=== PATIENT | male | born 1970 | race Hispanic/Latino ===

== ENCOUNTER 2022-08-01 09:30 | Emergency (ER) | payer SELFPAY ==
--- OUTSIDE RECORDS SUMMARY | 2022-08-01 09:32 | XMS REPORT | Continuity of Care Document ---
:1970 Author Organization [facility] t Address [address] [place] [address] Care Team Providers Name Role Phone PCP, PATIENT DOES NOT HAVE A Primary Care Physician UnavailDEREK Metcalf Attending Clinician Unavailable Derek Bethea DO Attending Clinician Rob LEWIS Attending Clinician Unavailable Rob Khan Attending Clinician ROSA LEMONS Attending Clinician Unavailable ROSA LEMONS Admitting Clinician Unavailable Payers Payer Name Policy Type Policy Number Effective Date Expiration Date S [facility] - [id number] 2018 00:00:00 OUT OF STATE Problems Condition Condition Condition Status Onset Resolution Last Treating Co mments Source Name Details Category Date Date Treatment Clinician Date No known No known Disease Unive rs active active ity of problems problems [facility] Allergies, Adverse Reactions, Alerts Allergy Allergy Status Severity Reaction(s) Onset Inactive Treating Comm ents Source Name Type Date Date Clinician NO KNOWN Drug Active Univers ALLERGIE Class ity of S [facility] Social History Social Habit Start Date Stop Date Quantity Comments Source Exposure to 2022-04-30 2022-05-10 Not sure [facility] SARS-CoV-2 (event) 00:00:00 08:46:00 Medica l Branch Sex Assigned At [birth year] [facility] 00:00:00 00:00:00 Medical Branch Smoking Status Start Date Stop Date Source Unknown if ever smoked [facility] Medical Branch Medications Ordered Filled Start Stop Current Ordering Indication Dosage Frequency Signature Comments Components Source Medication Medication Date Date Medication? Clinician (SIG) Name Name polymyxin B 2021- Yes [id number] 1[drp] Place 1 [facility] sulf-trimet 05-10 [id number] Drop in it y of hoprim 00:00: 04:59 left eye [place] 10,000 00 :00 every 4 Medical unit- 1 (four) Branch mg/mL hours for ophthalmic 5 days. drops ketorolac 2020-0 Yes [id number] 10mg Take 1 Un noel 10 mg 9-30 tablet by ity of tablet 00:00: mouth [place] 00 every 6 Medical (six) Branch hours as needed for Pain (scale 4-6). tamsulosin 2020-0 Yes [id number] .4mg Take 1 U nivers 0.4 mg 24 9-30 capsule by ity of hr capsule 00:00: mouth at Gabe as 00 bedtime. Medical Branch ketorolac 2020-0 Yes [id number] 10mg Take 1 Un noel 10 mg 9-30 tablet by ity of tablet 00:00: mouth [place] 00 every 6 Medical (six) Branch hours as needed for Pain (scale 4-6). tamsulosin 2020-0 Yes [id number] .4mg Take 1 U nivers 0.4 mg 24 9-30 capsule by ity of hr capsule 00:00: mouth at Gabe as 00 bedtime. Medical Branch acetaminoph 2020-0 Yes [id number] 1{tbl} Take 1 Univers en-codeine 2-13 tablet by ity of (TYLENOL-CO 00:00: mouth [place] DEINE #3) 00 every 6 Medical 300-30 mg (six) Branch tablet hours as needed for Pain (scale 4-6). acetaminoph 2020-0 Yes [id number] 1{tbl} Take 1 Univers en-codeine 2-13 tablet by ity of (TYLENOL-CO 00:00: mouth [place] DEINE #3) 00 every 6 Medical 300-30 mg (six) Branch tablet hours as needed for Pain (scale 4-6). Vital Signs Vital Name Observation Time Observation Value Comments Source Systolic blood 2022-05-10 13:46:00 151 mm[Hg] Univer sity of pressure [facility] Diastolic blood 2022-05-10 13:46:00 107 mm[Hg] Unive rsity of pressure [facility] Heart rate 2022-05-10 13:46:00 77 /min Universi ty of [facility] Body temperature 2022-05-10 13:46:00 36.78 Verónica Univ ersity [facility] Respiratory rate 2022-05-10 13:46:00 18 /min Univ ersity of [facility] Body height 2022-05-10 13:46:00 172.7 cm Universi ty of [facility] Body weight 2022-05-10 13:46:00 108.863 kg Universi ty of [facility] BMI 2022-05-10 13:46:00 36.49 kg/m2 Universi ty of [facility] Oxygen saturation in 2022-05-10 13:46:00 97 /min University of Arterial blood by [facility] Pulse oximetry Branch Systolic blood 2022-02-17 01:39:00 154 mm[Hg] Univer sity of [facility] Medical [place] Diastolic blood 2022-02-17 01:39:00 84 mm[Hg] Unive rsity of pressure [facility] Heart rate 2022-02-17 01:39:00 97 /min Universi ty of [facility] Oxygen saturation in 2022-02-17 01:39:00 95 /min University of Arterial blood by [facility] Pulse oximetry Branch Body temperature 2022-02-17 00:58:00 37.28 Verónica [facility] ersity [facility] Respiratory rate 2022-02-17 00:58:00 18 /min Univ ersity [facility] Body height 2022-02-17 00:58:00 172.7 cm Universi ty of [facility] Body weight 2022-02-17 00:58:00 108.863 kg Universi ty [facility] BMI 2022-02-17 00:58:00 36.49 kg/m2 Universi ty [facility] Procedures Procedure Date / Time Performed Performing Clinician [facility] e ASSIGNMENT OF BENEFITS 2022-05-10 15:01:33 Doctor Unassigned, No [facility] CONSENT/REFUSAL FOR 2022-05-10 13:45:55 Doctor Unassigned, No [facility] [place] DIAGNOSIS AND Name Medical Branch TREATMENT NOTICE OF PRIVACY 2022-02-17 00:47:27 Doctor Unassigned, No [facility] [place] PRACTICES Name [facility] Branch CONSENT/REFUSAL FOR 2022-02-17 00:45:34 Doctor Unassigned, No [facility] [place] DIAGNOSIS AND Name Medical Branch TREATMENT Encounters Start End Encounter Admission Attending Care Care Encounter Source Date/Time Date/Time Type Type Clinicians Facility Department ID 2022-05-10 2022-05-10 Emergency X [facility] ERT [id number] Univers 08:47:00 10:06:00 DEREK itshawn of [facility] 2022-05-10 2022-05-10 Emergency Singer [facility] [id number] Univers 08:47:00 10:06:00 Derek CALLAHAN [id number] i ty of [place] [id number] [facility] [id number] [place] [address] Branch 2022-02-16 2022-02-16 Emergency X Rob LEWIS [facility] ERT [id number] Univers 20:07:00 21:08:00 ity of [facility] 2022-02-16 2022-02-16 Emergency Rob Lewis [facility] [id number] Univers 20:07:00 21:08:00 Sabi CALLAHAN [id number] i ty of [place] [id number] [facility] [id number] [place] [address] Branch 2020-09-23 2020-09-23 Emergency X [facility] ERT [id number] Univers 06:47:00 06:47:00 ity of [facility] 2020-08-19 2020-08-19 Emergency X [facility] ERT [id number] Univers 07:42:00 07:42:00 ity of [facility] 2020-01-01 2020-01-02 Emergency X CRISTO, [facility] ERT [id number] Univers 23:43:58 02:08:00 ROSA ity [facility] Results This patient has no known results.
[2022-08-01 10:10] LABS: Absolute Lymphocytes (CBC) 2.2 K/uL (0.7-4.9); Hematocrit 48.2 % (39.6-49.0); Lymphocytes % 26.4 % (15.3-44.8); MCV 87.1 fL (80-100); RBC Red Blood Cell Count 5.53 M/uL (4.33-5.43)
--- NOTE | 2022-08-01 10:25 | RAD REPORT ---
EXAM DESCRIPTION: CT - Stone Protocol - 08/01/2022 10:13 am CLINICAL HISTORY: Flank pain. flank pain COMPARISON: No comparisons TECHNIQUE: Axial images were obtained without oral or IV contrast. Lack of contrast limits solid org an and vascular assessment. The [id number] spans the entirety of the system partially obscuring uppermost abdomen and lung bases. Coronal reformatted images were obtained and reviewed. All CT scans are performed using dose optimization technique as appropriate and may include automated exposure control or mA/KV adjustment according to patient size. FINDINGS: The lower lung maria are clear. Imaged portions of the liver demonstrates 16 mm low-density lesion in the left lobe. Diffuse fatty li rhoda is present. Cholecystectomy clips.Normal spleen. The pancreas and adrenal glands are normal. No p athologic lymphadenopathy in the abdomen or pelvis. No urinary tract stones or obstructive uropathy. No bowel obstruction, free air, free fluid or abscess. Normal appendix noted. Posterior disc bulge present L5-S1. IMPRESSION: No urinary tract stones or obstructive uropathy. Diffuse fatty liver with 16 mm nonspecific lesion left lobe liver. Nonemergent outpatient MRI liver p rotocol may be of value for further characterization.
[2022-08-01 10:29] LABS: Albumin 3.3 g/dL (3.4-5.0); Bilirubin Total 0.3 mg/dL (0.2-1.0); Protein, Total 7.4 g/dL (6.4-8.2)
[2022-08-01 10:45] LABS: Urine Blood Negative (Negative); Urine Glucose 3+ (Negative); Urine Protein Negative (Negative); Urine Specific Gravity 1.015 (1.005-1.030)
[2022-08-01 10:54] LABS: Urine RBC <5 /HPF (None Seen)
[2022-08-01] MEDS ORDERED: KETOROLAC 30 MG/ML INJ ONE (11:33)
[2022-08-01] MEDS ORDERED: NA CHLORIDE 0.9% 1,000 ML ONE (12:23)
--- NOTE | 2022-08-01 13:12 | EDPHYS ---
Physician Documentation [facility] Name: Amari Dinero Age: 51 yrs Sex: Male : 1970 Arrival Date: 08/01/2022 Time: 09:32 Bed 2 Private MD: KATIE Physician Nayan Robert HPI: 08/01 13:17 This 51 yrs old Male presents to ER via Ambulatory with complaints of Possible kb Kidney Stone, Low Back Pain. 13:17 The patient complains of pain in the left flank and right flank. The pain does not kb radiate. Onset: The symptoms/episode began/occurred 3 day(s) ago. Modifying factors: The symptoms are alleviated by nothing. the symptoms are aggravated by nothing. Associated signs and symptoms: Pertinent positives: dysuria, urinary frequency, Pertinent negatives: diarrhea, dizziness, fever, headache, hematuria, nausea, pain radiating to the lower extremities, vomiting. Severity of pain: At its worst the pain was moderate in the emergency department the pain is unchanged. The patient has experienced similar episodes in the past, a few times, today's symptoms are similar, to previous kidney stone. The patient has not recently seen a physician. Pt reports flank pain bilaterally, dysuria and frequency that started 3 days ago. Historical: - Allergies: 09:48 No Known Allergies; iw - Home Meds: 09:48 None [Active]; iw - PSHx: 09:48 Cholecystectomy; iw - Immunization history:: Adult Immunizations unknown. - Social history:: Smoking status: unknown. ROS: 13:16 Constitutional: Negative for fever, chills, and weight loss. kb 13:16 Back: Positive for flank pain, bilaterally. 13:16 : Positive for urinary frequency, burning with urination. 13:16 All other systems are negative. Exam: 13:16 Constitutional: This is a well developed, well nourished patient who is awake, alert, kb and in no acute distress. Head/Face: Normocephalic, atraumatic. ENT: Moist Mucous membranes Respiratory: Respirations even and unlabored. No increased work of breathing. Talking in full sentences Abdomen/GI: Soft, non-tender. No distention Skin: Warm, dry with normal turgor. Normal color. MS/ Extremity: Pulses equal, no cyanosis. Neurovascular intact. Full, normal range of motion. Neuro: Awake and alert, GCS 15, oriented to person, place, time, and situation. Moves all extremities. Normal gait. Psych: Awake, alert, with orientation to person, place and time. Behavior, mood, and affect are within normal limits. 13:16 Back: CVA tenderness, that is mild, is noted on the left. Vital Signs: 09:47 BP 158 / 98; Pulse 97; Resp 16; Temp 98.4; Pulse Ox 98% on R/A; iw 11:33 BP 133 / 87; Pulse 85; Resp 16; Pulse Ox 96% on R/A; em6 12:25 BP 136 / 94; Pulse 85; Resp 18; Pulse Ox 95% on R/A; Pain 7/10; eh3 13:30 BP 143 / 91; Pulse 75; Resp 18; Pulse Ox 96% on R/A; Pain 0/10; eh3 MDM: 09:49 Patient medically screened. kb 13:16 Data reviewed: vital signs, nurses notes. Data interpreted: Pulse oximetry: on room air kb is 95 %. Interpretation: normal. Counseling: I had a detailed discussion with the patient and/or guardian regarding: the historical points, exam findings, and any diagnostic results supporting the discharge/admit diagnosis, lab results, radiology results, the need for outpatient follow up, a family practitioner, to return to the emergency department if symptoms worsen or persist or if there are any questions or concerns that arise at home. 08/01 09:49 Order name: CBC with Diff; Complete Time: 10:14 kb 08/01 09:49 Order name: CMP; Complete Time: 10:33 kb 08/01 09:49 Order name: Lipase; Complete Time: 10:33 kb 08/01 09:49 Order name: Urine Microscopic Only; Complete Time: 10:59 kb 12 10:45 Order name: Urine Dipstick-Ancillary; Complete Time: 10:59 EDMS 08/01 09:49 Order name: IV Saline Lock; Complete Time: 10:06 kb 08/01 09:49 Order name: Labs collected and sent; Complete Time: 10:06 kb 08/01 09:49 Order name: Urine Dipstick-Ancillary (obtain specimen); Complete Time: 11:26 kb 08/01 09:49 Order name: CT Stone Protocol; Complete Time: 10:33 kb Administered Medications: 11:27 Drug: Ketorolac 15 mg Route: IVP; Site: right antecubital; em6 12:30 Follow up: Response: Pain is decreased eh3 12:18 Drug: NS 0.9% 1000 ml Route: IV; Rate: 1000 ml; Site: right forearm; eh3 13:30 Follow up: IV Status: Completed infusion; IV Intake: 1000ml eh3 Disposition Summary: 08/01/22 13:11 Discharge Ordered Location: Home kb Condition: Stable kb Diagnosis - Hyperglycemia, unspecified kb - Flank pain kb Followup: kb - With: Emergency Department - When: As needed - Reason: Worsening of condition Followup: kb - With: Private Physician - When: 2 - 3 days - Reason: Recheck today's complaints, Continuance of care, Re-evaluation by your physician Discharge Instructions: - Discharge Summary Sheet kb - Hyperglycemia, [id number] kb - Flank Pain, Adult, [id number] kb - Form - Excuse from Work, School, or Physical Activity 3 Forms: - Medication Reconciliation Form kb - Thank You Letter kb - Antibiotic Education kb - Prescription Opioid Use kb Signatures: Dispatcher [employer] EDMS Alisha Duffy, FISHER DIVER NET-C FISHER DIVER NET-Ckb Shelby Wooten RN RN iw Vianney Goodson RN RN 3 Alena Mojica RN RN em6 Corrections: (The following items were deleted from the chart) 09:49 09:48 PSHx: None; [facility] 12:25 12:22 HEMOGLOBIN A1C+CHEM A1C.LAB.BRZ ordered. EDMS EDMS 13:17 13:16 Back: CVA tenderness, that is mild, is noted bilaterally, kb kb
--- NOTE | 2022-08-01 13:12 | ER ---
Nurse's Notes [facility] Name: Amari Dinero Age: 51 yrs Sex: Male : 1970 Arrival Date: 08/01/2022 Time: 09:32 Bed 2 Private MD: Diagnosis: Hyperglycemia, unspecified;Flank pain Presentation: 08/01 09:47 Chief complaint: Patient states: has hx of kidney stones, right now both sides are iw hurting since Monday. Coronavirus screen: At this time, the client does not indicate any symptoms associated with coronavirus-19. Ebola Screen: Patient negative for fever greater than or equal to 101.5 degrees Fahrenheit, and additional compatible Ebola Virus Disease symptoms Patient denies exposure to infectious person. Patient denies travel to an Ebola-affected area in the 21 days before illness onset. No symptoms or risks identified at this time. Initial Sepsis Screen: Does the patient meet any 2 criteria? No. Patient's initial sepsis screen is negative. Does the patient have a suspected source of infection? No. Patient's initial sepsis screen is negative. Risk Assessment: Do you want to hurt yourself or someone else? Patient reports no desire to harm self or others. Onset of symptoms was July 30, 2022. 09:47 Method Of Arrival: Ambulatory iw 09:47 Acuity: SHIRLEY 3 iw Triage Assessment: 13:44 General: Behavior is calm, cooperative, appropriate for age. eh3 Historical: - Allergies: 09:48 No Known Allergies; iw - Home Meds: 09:48 None [Active]; iw - PSHx: 09:48 Cholecystectomy; iw - Immunization history:: Adult Immunizations unknown. - Social history:: Smoking status: unknown. Screenin:50 Abuse screen: Denies threats or abuse. Nutritional screening: No deficits noted. em6 Tuberculosis screening: No symptoms or risk factors identified. Fall Risk IV access (20 points). Total Hawkins Fall Scale indicates No Risk (0-24 pts). Assessment: 09:50 General: Appears in no apparent distress. comfortable. Pain: Complains of pain in left em6 low back and right low back Pain does not radiate. Pain currently is 6 out of 10 on a pain scale. Quality of pain is described as sharp, Is continuous. Neuro: Islas Agitation-Sedation Scale (RASS): 0 - Alert and Calm Level of Consciousness is awake, alert, obeys commands, Oriented to person, place, time, situation. Cardiovascular: Denies nausea, Heart tones present Capillary refill < 3 seconds Patient's skin is warm and dry. Respiratory: Airway is patent Respiratory effort is even, unlabored, Respiratory pattern is regular, symmetrical, Breath sounds are clear bilaterally. GI: Abdomen is non-distended, Abd is soft and non tender X 4 quads. : Reports burning with urination. EENT: No signs and/or symptoms were reported regarding the EENT system. Derm: No signs and/or symptoms reported regarding the dermatologic system. Musculoskeletal: Circulation, motion, and sensation intact. Range of motion: intact in all extremities. 11:00 Reassessment: No changes from previously documented assessment. Patient and/or family em6 updated on plan of care and expected duration. Pain level reassessed. Patient is alert, oriented x 3, equal unlabored respirations, skin warm/dry/pink. Vital Signs: 09:47 BP 158 / 98; Pulse 97; Resp 16; Temp 98.4; Pulse Ox 98% on R/A; iw 11:33 BP 133 / 87; Pulse 85; Resp 16; Pulse Ox 96% on R/A; em6 12:25 BP 136 / 94; Pulse 85; Resp 18; Pulse Ox 95% on R/A; Pain 7/10; eh3 13:30 BP 143 / 91; Pulse 75; Resp 18; Pulse Ox 96% on R/A; Pain 0/10; eh3 ED Course: 09:32 Patient arrived in ED. rg4 09:47 [facility]C [facility] kb 09:47 Nayan Robert MD is Attending Physician. kb 09:48 Triage completed. iw 09:50 Arm band placed on. em6 09:50 Bed in low position. Call light in reach. Side rails up X 1. Pulse ox on. NIBP on. Warm em6 blanket given. 10:07 Initial lab(s) drawn, by me, sent to lab. Inserted saline lock: 20 gauge in right em1 forearm, using aseptic technique. Blood collected. 10:14 CT Stone Protocol In Process Unspecified. EDMS 10:34 Robert Foley RN is Primary Nurse. jd3 11:57 Primary Nurse role handed off by Robert Foley, LOVE 3 11:57 Vianney Goodson, RN is Primary Nurse. 3 13:43 No provider procedures requiring assistance completed. IV discontinued, intact, eh3 bleeding controlled, No redness/swelling at site. Pressure dressing applied. Administered Medications: 11:27 Drug: Ketorolac 15 mg Route: IVP; Site: right antecubital; em6 12:30 Follow up: Response: Pain is decreased 3 12:18 Drug: NS 0.9% 1000 ml Route: IV; Rate: 1000 ml; Site: right forearm; eh3 13:30 Follow up: IV Status: Completed infusion; IV Intake: 1000ml 3 Medication: 13:44 VIS not applicable for this client. eh3 Intake: 13:30 IV: 1000ml; Total: 1000ml. 3 Outcome: 13:11 Discharge ordered by . kb 13:43 Discharged to home ambulatory, with family. 3 13:43 Condition: stable 13:43 Discharge instructions given to patient, family, Instructed on discharge instructions, follow up and referral plans. Demonstrated understanding of instructions, follow-up care. 13:45 Patient left the ED. 3 Signatures: Dispatcher [employer] EDMS Alisha Duffy, ALCOHOLISM WORKER-C ALCOHOLISM WORKER-Ckb Shelby Wooten, Florin Davila RN em1 Shannon Shahid rg4 Robert Foley RN RN jd3 Vianney Goodson, LOVE RN eh3 Alena Mojica RN RN em6 Corrections: (The following items were deleted from the chart) 09:49 09:48 [facility]x: [facility]
[2022-08-01 14:02] VITALS: TEMP 98.4
[2022-08-01 14:23] VITALS: BP 143/91; O2SAT 96
== END 2022-08-01 13:45 | disposition home or self-care (01) ==
LOC: ER 09:30
DX: R10.9 Unspecified abdominal pain (principal); R73.9 Hyperglycemia, unspecified
CPT/HCPCS: 36415; 74176; 76377; 80053; 81003; 81015; 83690; 85025; 96361; 96374; 99284; J7030